=== PATIENT | male | born 1970 | race Caucasian/White ===

== ENCOUNTER 2016-10-12 10:15 | Observation (INO) | payer SELFPAY ==
[~2016-10-12] VITALS: Ht 180.3 cm; Wt 125.0 kg
[~2016-10-12 10:15] MED LIST: OMEP20TA62 PO
[2016-10-12] MEDS ORDERED: LORazepam 1MG TABLET PO ONE (10:30)
[2016-10-12] MEDS ORDERED: PLEASE ENTER HEIGHT AND WEIGHT MC SCH (11:00)
[2016-10-12] MEDS ORDERED: METF10002 PO (11:18)
[2016-10-12] MEDS ORDERED: FLUO10CA13 PO (11:18)
[2016-10-12 11:32] LABS: HEMATOCRIT 45.5 % (39.2-51.8); HEMOGLOBIN 15.3 g/dL (13.7-18.0); WHITE BLOOD COUNT 12.7 x10^3/uL (3.4-10)
[2016-10-12 11:44] LABS: BLOOD UREA NITROGEN 12 mg/dL (7-18)
[2016-10-12 11:47] LABS: ACETAMINOPHEN < 2 mcg/mL (10-30)
[2016-10-12] MEDS ORDERED: DOCUSATE 100 MG CAPSULE PO PRN (14:30)
[2016-10-12] MEDS ORDERED: ACETAMINOPHEN 325 MG TABLET PO PRN (14:30)
[2016-10-12] MEDS ORDERED: POLYETHYLENE GLYCOL 17 GM PACKET PO PRN (14:30)
[2016-10-12] MEDS ORDERED: BISACODYL 10 MG SUPP PR PRN (14:30)
[2016-10-12 14:38] LABS: DAU SCREEN DISCLAIMER
[2016-10-12 14:45] LABS: PATH.CAST-FLAG NOT PRESENT; SPERM-FLAG NOT PRESENT; SRC-FLAG NOT PRESENT; XTAL-FLAG NOT PRESENT; YLC-FLAG NOT PRESENT
[2016-10-12 14:50] VITALS: BP 145/83
[2016-10-12] MEDS: ENOXAPARIN 40 MG/0.4 ML SQ SCH (15:31)
[2016-10-12] MEDS: INSULIN REGULAR 100 UNITS/ML, 3ML VIAL SQ-INSULIN SCH ×3 (16:00→21:00)
[2016-10-12 20:57] VITALS: BP 135/85
[2016-10-13] MEDS ORDERED: LORazepam 1MG TABLET PO ONE (02:00)
[2016-10-13] MEDS: INSULIN REGULAR 100 UNITS/ML, 3ML VIAL SQ-INSULIN SCH ×3 (07:00→16:00)
[2016-10-13 07:26] VITALS: BP 140/90
[2016-10-13] MEDS ORDERED: FLUOXETINE 10 MG CAP PO SCH (09:00)
[2016-10-13] MEDS: ENOXAPARIN 40 MG/0.4 ML SQ SCH (15:23)
[2016-10-13] MEDS ORDERED: BISACODYL 10 MG SUPP PR PRN (20:30)
[2016-10-13] MEDS ORDERED: POLYETHYLENE GLYCOL 17 GM PACKET PO PRN (20:30)
[2016-10-13] MEDS ORDERED: DOCUSATE 100 MG CAPSULE PO PRN (20:30)
[2016-10-13] MEDS ORDERED: ACETAMINOPHEN 325 MG TABLET PO PRN (20:30)
[2016-10-13 21:08] VITALS: BP 148/102
[2016-10-14] MEDS: INSULIN REGULAR 100 UNITS/ML, 3ML VIAL SQ-INSULIN SCH ×3 (07:30→21:00)
[2016-10-14 08:00] VITALS: BP 157/104
[2016-10-14] MEDS: FLUOXETINE 10 MG CAP PO SCH (08:45)
[2016-10-14 10:00] VITALS: BP 152/100
[2016-10-14] MEDS: LORazepam 1MG TABLET PO PRN (10:17)
[2016-10-14 12:24] VITALS: BP 152/93
[2016-10-14] MEDS: ENOXAPARIN 40 MG/0.4 ML SQ SCH (15:19)
[2016-10-14] MEDS ORDERED: INSULIN REGULAR 100 UNITS/ML, 3ML VIAL SQ-INSULIN SCH (17:00)
[2016-10-14 17:46] VITALS: BP 147/92
[2016-10-14 19:45] VITALS: BP 159/102
[2016-10-15] MEDS: INSULIN REGULAR 100 UNITS/ML, 3ML VIAL SQ-INSULIN SCH ×2 (07:30→20:09)
[2016-10-15 08:28] VITALS: BP 145/79
[2016-10-15] MEDS: FLUOXETINE 10 MG CAP PO SCH (08:31)
[2016-10-15] MEDS: ENOXAPARIN 40 MG/0.4 ML SQ SCH (15:13)
[2016-10-15] MEDS: LORazepam 1MG TABLET PO PRN (15:19)
[2016-10-15 19:23] VITALS: BP 153/92
[2016-10-15] MEDS ORDERED: DIPHENHYDRAMINE 50 MG CAPSULE PO ONE (20:00)
[2016-10-16] MEDS: INSULIN REGULAR 100 UNITS/ML, 3ML VIAL SQ-INSULIN SCH (07:23)
[2016-10-16] MEDS: FLUOXETINE 10 MG CAP PO SCH (07:24)
[2016-10-16 07:25] VITALS: BP 143/89
[2016-10-16] MEDS: ENOXAPARIN 40 MG/0.4 ML SQ SCH (15:00)
[2016-10-17] MEDS ORDERED: ENOXAPARIN 40 MG/0.4 ML SQ SCH (15:00)
== END 2016-10-16 16:55 | disposition home or self-care (01) ==
LOC: ED 11:09 → EDIP 13:55 → INTOOBSV 13:55 → 3E 14:41
PROVIDERS: ADMIT Internal Medicine; ATTEND Internal Medicine
DX: R45.851 Suicidal ideations (principal); D72.829 Elevated white blood cell count, unspecified; F32.9 Major depressive disorder, single episode, unspecified; E11.9 Type 2 diabetes mellitus without complications; E78.5 Hyperlipidemia, unspecified; I10 Essential (primary) hypertension; F17.200 Nicotine dependence, unspecified, uncomplicated; Z82.49 Family history of ischemic heart disease and other diseases of the circulatory system; Z87.898 Personal history of other specified conditions
CPT/HCPCS: 36415; 74000; 80048; 80307; 80329; 81001; 82040; 82962; 85025; 96372; 99285; G0378; J1650; G0480